=== PATIENT | female | born 1965 | race Caucasian/White ===

== ENCOUNTER 2017-01-16 11:03 | Emergency (ER) | payer OTHER ==
[~2017-01-16] VITALS: Ht 165.1 cm; Wt 68.0 kg
[~2017-01-16 11:03] MED LIST: AMOX1TAB61 PO; DICY10CA53 PO; HYDR-971 PO; HYDR12.53 PO; MULT-650 PO; OMEP20CA9 PO; PARO10TA57 PO
[2017-01-16] MEDS ORDERED: IV NORMAL SALINE 1,000ML 1,000 ML IV SCH (11:33)
[2017-01-16 11:43] LABS: BASO # 0.1 x10^3/uL (0.0-0.2); BASO % 1 % (0-3); EOS # 0.1 x10^3/uL (0.0-0.7); EOS % 1 % (0-3); HEMATOCRIT 49.2 % (36.0-47.0); HEMOGLOBIN 16.5 g/dL (12.0-15.5); LYMPH # 4.7 x10^3/uL (1.0-4.8); LYMPH % 43 % (24-48); MEAN CORPUSCULAR HEMOGLOBIN 30 pg (25-35); MEAN CORPUSCULAR HGB CONC 34 g/dL (31-37); MEAN CORPUSCULAR VOLUME 89 fL (79-100); MONO # 0.7 x10^3/uL (0.0-1.1); MONO % 6 % (0-9); NEUT # 5.3 x10^3uL (1.8-7.7); NEUT % 49 % (31-73); PLATELET COUNT 312 x10^3/uL (140-400); RED BLOOD COUNT 5.52 x10^6/uL (3.50-5.40); RED CELL DISTRIBUTION WIDTH 13.2 % (11.5-14.5); WHITE BLOOD COUNT 10.9 x10^3/uL (4.0-11.0)
[2017-01-16] MEDS ORDERED: fentaNYL PF 100 MCG/2 ML VIAL IV PRN (11:45)
[2017-01-16 11:54] LABS: ALBUMIN 4.2 g/dL (3.4-5.0); ALBUMIN/GLOBULIN RATIO 1.2 (1.0-1.7); CALCIUM 9.2 mg/dL (8.5-10.1); POTASSIUM 3.5 mmol/L (3.5-5.1); TOTAL BILIRUBIN 0.6 mg/dL (0.2-1.0); TOTAL PROTEIN 7.7 g/dL (6.4-8.2)
[2017-01-16] MEDS ORDERED: fentaNYL PF 100 MCG/2 ML VIAL IV ONE (12:00)
[2017-01-16] MEDS ORDERED: ONDANSETRON PF 4 MG/2 ML VIAL. IV ONE (12:00)
[2017-01-16 12:12] VITALS: BP 156/94
--- NOTE | 2017-01-16 12:14 | RAD ---
CT of the abdomen and pelvis without contrast, 01/16/2017: History: Bilateral flank pain Noncontrast scans were obtained utilizing the renal stone protocol. Comparison is made to a study from 07/20/2015. There are couple small intrarenal radiopacities on the left. The left renal collecting system and ureter are not dilated. Several small vascular calcifications are present in the pelvis. There is mild dilatation of the right renal pelvis and right ureter. There is a 3 mm radiopacity along the posterior wall of the urinary bladder on the right. This most likely represents a calculus lodged in the intramural segment of the distal right ureter at the ureterovesical junction. The bladder is largely collapsed. The gallbladder is surgically absent. The unopacified liver shows no abnormality. No pancreatic abnormality is seen. The spleen is of normal size. There is moderate aortoiliac calcific plaquing without evidence of aneurysm. No abdominal or pelvic adenopathy is seen. The bowel loops are not dilated. A couple small scattered colonic diverticula are noted. The appendix is visualized and shows no abnormality. No free air or significant free fluid is evident in the abdomen or pelvis. IMPRESSION: 1. Small obstructing calculus in the intramural segment of the distal right ureter at the ureterovesical junction. 2. Tiny nonobstructing left intrarenal calculi. PQRS Compliance Statement: One or more of the following individualized dose reduction techniques were utilized for this examination: 1. Automated exposure control 2. Adjustment of the mA and/or kV according to patient size 3. Use of iterative reconstruction technique
[2017-01-16 12:52] LABS: BILIRUBIN,URINE NEG (NEG); CLARITY,URINE CLEAR; COLOR,URINE YELLOW; GLUCOSE,URINE NEG (NEG); NITRITE,URINE NEG (NEG); UROBILINOGEN,URINE 0.2 mg/dL (0.2 mg/dL)
[2017-01-16] MEDS ORDERED: TAMSULOSIN 0.4 MG CAP.ER.24H. PO ONE (13:00)
[2017-01-16] MEDS ORDERED: KETOROLAC 30 MG/ML VIAL. IV ONE (13:00)
[2017-01-16] MEDS ORDERED: HYDR-971 PO (13:03)
[2017-01-16] MEDS ORDERED: TAMS0.4C97 PO (13:03)
--- NOTE | 2017-01-16 13:05 | PHYS DOC ---
Past History Past Medical History: Hypertension Past Surgical History: Cholecystectomy, Hysterectomy Alcohol Use: None Drug Use: None Adult General Chief Complaint Chief Complaint: FLANK PAIN HPI HPI Patient is a 51-year-old female who presents to the ED with severe right flank pain which began this morning. When she thinks about it, she has had some urinary urgency and dysuria for a few days. She's had no fever or chills. Nausea but no vomiting. She's never had anything like this before. Her pain is currently described as severe. It is in her right flank and radiates around to her right lower abdomen. Patient has had a hysterectomy. Review of Systems Review of Systems Constitutional: Denies fever or chills [] GI: As in history of present illness : She has had some recent urinary urgency, urinary incontinence, and dysuria r Current Medications Current Medications Current Medications Medications (Trade) Dose Ordered Sig/Mike Start Time Stop Time Status Last Admin Dose Admin Fentanyl Citrate (Fentanyl 2ml Vial) 100 mcg 1X ONCE 01/16/17 12:00 01/16/17 12:01 DC 01/16/17 11:43 100 MCG Ketorolac Tromethamine (Toradol) 30 mg 1X ONCE 01/16/17 13:00 01/16/17 13:01 Ondansetron HCl (Zofran) 4 mg 1X ONCE 01/16/17 12:00 01/16/17 12:01 DC 01/16/17 11:46 4 MG Sodium Chloride 1,000 ml @ 100 mls/hr Q10H 01/16/17 11:33 01/16/17 21:32 01/16/17 11:42 100 MLS/HR Tamsulosin HCl (Flomax) 0.4 mg 1X ONCE 01/16/17 13:00 01/16/17 13:01 Allergies Allergies Allergies Coded Allergies Type Severity Reaction Last Updated Verified codeine Allergy Unknown 07/10/16 Yes Physical Exam Physical Exam Constitutional: Well developed, well nourished, tearful, appears very uncomfortable, alert, mentating normally HENT: Normocephalic, atraumatic, bilateral external ears normal, nose normal. [] Eyes: conjunctiva normal, no discharge. [] Neck: Normal range of motion, no stridor. [] Cardiovascular:Heart rate regular rhythm, no murmur [] Lungs & Thorax: Bilateral breath sounds clear to auscultation [] Abdomen: Bowel sounds normal, soft, nondistended, no tenderness, no masses, no pulsatile masses. [] Skin: Warm, dry, no erythema, no rash. [] Extremities: No tenderness, no cyanosis, no clubbing, ROM intact, no edema. [] Neurologic: Alert and oriented X 3, normal motor function, normal sensory function, no focal deficits noted. [] Current Patient Data Vital Signs Vital Signs Date Time Temp Pulse Resp B/P (MAP) Pulse Ox O2 Delivery O2 Flow Rate FiO2 01/16/17 12:16 20 01/16/17 12:12 69 156/94 (114) 100 01/16/17 11:59 Room Air 01/16/17 11:13 98.4 Lab Results Laboratory Tests Test 01/16/17 11:25 White Blood Count 10.9 x10^3/uL (4.0-11.0) Red Blood Count 5.52 x10^6/uL (3.50-5.40) H Hemoglobin 16.5 g/dL (12.0-15.5) H Hematocrit 49.2 % (36.0-47.0) H Mean Corpuscular Volume 89 fL (79-100) Mean Corpuscular Hemoglobin 30 pg (25-35) Mean Corpuscular Hemoglobin Concent 34 g/dL (31-37) Red Cell Distribution Width 13.2 % (11.5-14.5) Platelet Count 312 x10^3/uL (140-400) Neutrophils (%) (Auto) 49 % (31-73) Lymphocytes (%) (Auto) 43 % (24-48) Monocytes (%) (Auto) 6 % (0-9) Eosinophils (%) (Auto) 1 % (0-3) Basophils (%) (Auto) 1 % (0-3) Neutrophils # (Auto) 5.3 x10^3uL (1.8-7.7) Lymphocytes # (Auto) 4.7 x10^3/uL (1.0-4.8) Monocytes # (Auto) 0.7 x10^3/uL (0.0-1.1) Eosinophils # (Auto) 0.1 x10^3/uL (0.0-0.7) Basophils # (Auto) 0.1 x10^3/uL (0.0-0.2) Sodium Level 142 mmol/L (136-145) Potassium Level 3.5 mmol/L (3.5-5.1) Chloride Level 106 mmol/L (98-107) Carbon Dioxide Level 29 mmol/L (21-32) Anion Gap 7 (6-14) Blood Urea Nitrogen 12 mg/dL (7-20) Creatinine 1.0 mg/dL (0.6-1.0) Estimated GFR (Cockcroft-Gault) 58.0 BUN/Creatinine Ratio 12 (6-20) Glucose Level 113 mg/dL (70-99) H Calcium Level 9.2 mg/dL (8.5-10.1) Total Bilirubin 0.6 mg/dL (0.2-1.0) Aspartate Amino Transferase (AST) 14 U/L (15-37) L Alanine Aminotransferase (ALT) 17 U/L (14-59) Alkaline Phosphatase 127 U/L (46-116) H Total Protein 7.7 g/dL (6.4-8.2) Albumin 4.2 g/dL (3.4-5.0) Albumin/Globulin Ratio 1.2 (1.0-1.7) EKG EKG [] Radiology/Procedures Radiology/Procedures CT scan of the abdomen and pelvis read by the radiologist. Mild dilatation of the right renal pelvis and right ureter, 3 mm radio opacity likely in the distal right ureter. [] Course & Med Decision Making Course & Med Decision Making Pertinent Labs and Imaging studies reviewed. (See chart for details) 51-year-old female presents with acute onset of right flank and right abdominal pain, history and exam are suggestive of a kidney stone. CT scan is consistent with a distal ureter stone on the right, with mild [place]. Patient got good relief with IV pain medication in the ED. She was given a dose of Flomax and Toradol prior to discharge. We discussed home management, she will strain her urine, follow up with urologist. See instructions for plan. [] Dragon Disclaimer Dragon Disclaimer This chart was dictated in whole or in part using Voice Recognition software in a busy, high-work load, and often noisy Emergency Department environment. It may contain unintended and wholly unrecognized errors or omissions. Departure Departure: Impression: Primary Impression: Kidney stone on right side Additional Impression: Renal colic on right side Disposition: 01 HOME, SELF-CARE Condition: IMPROVED Referrals: BANDAR TINOCO DO (PCP) Patient Instructions: Kidney Stones, [id number] Additional Instructions: Drink lots of fluids, you want to urinate every hour or so with light yellow urine the color of lemonade. Flomax one every 24 hours to help relax the urinary system to help with pain and help the stone pass. Ibuprofen 600 mg every 6-8 hours which also helps with pain and relaxes. If needed for more severe pain, hydrocodone as prescribed. Do not take this while driving. You may combine all 3 of these medications if needed. Call for an appointment with a urologist for follow-up in 1-2 weeks. Strain urine and save the stone, take it to the urologist. If you do not pass the stone in one to 2 weeks, you may need to have a procedure to get it out. That's why I want you to have an appointment with a urologist ready to go. Scripts Hydrocodone Bit/Acetaminophen (NORCO 5-325 TABLET) 1 Each Tablet 1 TAB PO PRN Q6HRS Y for PAIN, #10 TAB 0 Refills Prov: BREANA ESPINOZA MD 01/16/17 Tamsulosin Hcl (FLOMAX) 0.4 Mg Cap.er.24h 1 CAP PO DAILY for kidney stone pain, #14 CAP 0 Refills One every 24 hours until kidney stone passes Prov: BREANA ESPINOZA MD 01/16/17 Problem Qualifiers BREANA ESPINOZA MD Jan 16, 2017 13:05
== END 2017-01-16 13:19 | disposition home or self-care (01) ==
LOC: ER 11:03
DX: N23 Unspecified renal colic (principal); I10 Essential (primary) hypertension; Z90.49 Acquired absence of other specified parts of digestive tract; Z90.710 Acquired absence of both cervix and uterus; Z88.5 Allergy status to narcotic agent
CPT/HCPCS: 36415; 74176; 80053; 81003; 85025; 96361; 96374; 96375; 96376; 99285; J1885; J2405; J3010; J7030

== ENCOUNTER → 2017-01-26 | Outpatient (CLI) | payer OTHER ==
[2017-01-16 12:12] VITALS: BP 156/94
[~2017-01-26] MED LIST changes: +IOHEXOL 240 MG/ML 50ML VIAL. ONE; +IOHEXOL 300 MG/ML 75 ML VIAL. IV ONE; +TAMS0.4C97 PO
--- NOTE | 2017-01-26 11:43 | RAD ---
CT scan of the abdomen and pelvis without and with contrast 01/26/2017 Clinical history: Left lower quadrant abdominal pain. Technique: After the oral and intravenous administration of contrast, contiguous, 5 mm axial sections were obtained through the abdomen and pelvis. One or more of the following individualized dose reduction techniques were utilized for this study: 1. Automated exposure control. 2. Adjustment of the mA and/or kV according to patient size. 3. Use of iterative reconstruction technique. Findings: Comparison study is dated 01/16/2017. Images through the lung bases demonstrate minimal dependent subsegmental atelectasis bilaterally. The liver, spleen, pancreas, adrenal glands and kidneys are within normal limits. The small distal right ureteral calculus seen on the previous examination has been passed. There is no evidence of obstruction of either collecting system. Moderate atherosclerotic calcification of the abdominal aorta is seen. The abdominal aorta tapers normally. Surgical clips are seen within the gallbladder fossa consistent with a cholecystectomy. No free fluid or free air is seen within the abdomen. There is no evidence of bowel obstruction. The appendix is well-visualized and is within normal limits. Images through the pelvis demonstrate the urinary bladder distended with urine. A moderate amount of stool is seen involving the rectum and sigmoid colon. The patient is status post hysterectomy. No adnexal mass is seen. The osseous structures are unchanged. Impression: No acute abnormality is seen.
== END | disposition home or self-care (01) ==
LOC: CT 09:56
PROVIDERS: ATTEND Family Medicine
DX: N20.0 Calculus of kidney (principal); J98.11 Atelectasis; I70.0 Atherosclerosis of aorta; N32.89 Other specified disorders of bladder; I10 Essential (primary) hypertension; F17.200 Nicotine dependence, unspecified, uncomplicated; Z90.49 Acquired absence of other specified parts of digestive tract; Z90.710 Acquired absence of both cervix and uterus
CPT/HCPCS: 74177; Q9966; Q9967

== ENCOUNTER → 2018-02-09 | Outpatient (CLI) | payer OTHER ==
[~2018-02-09] MED LIST changes: -IOHEXOL 240 MG/ML 50ML VIAL. ONE; -IOHEXOL 300 MG/ML 75 ML VIAL. IV ONE
--- NOTE | 2018-02-09 13:23 | RAD ---
EXAM: Maxillofacial bone CT without contrast. HISTORY: Sinusitis. TECHNIQUE: Computed tomographic images of the maximal facial bones were obtained without contrast. *One or more of the following individualized dose reduction techniques were utilized for this examination: 1. Automated exposure control. 2. Adjustment of the mA and/or kV according to patient size. 3. Use of iterative reconstruction technique. COMPARISON: None. FINDINGS: There is severe mucosal thickening with near complete opacification of the bilateral maxillary sinuses, right aspect of the sphenoid sinus and right frontal and ethmoid sinuses. There is mild left ethmoid mucosal thickening. There is obstruction of the ostiomeatal units. There is rightward nasal septal deviation. There is no sinus wall thickening. The orbits heart are unremarkable. There is minimal mastoid fluid. The temporomandibular joints are intact. The visualized portions of the brain and calvarium are unremarkable. IMPRESSION: Severe paranasal sinus disease with obstruction of the ostiomeatal units, described above. Electronically signed by: Xena Lynch MD (02/09/2018 1:20 PM) [place] [id number]
== END | disposition home or self-care (01) ==
LOC: CT 09:54
PROVIDERS: ATTEND Family Medicine
DX: J01.40 Acute pansinusitis, unspecified (principal); J34.2 Deviated nasal septum; I10 Essential (primary) hypertension; Z90.49 Acquired absence of other specified parts of digestive tract; Z90.710 Acquired absence of both cervix and uterus; Z87.891 Personal history of nicotine dependence; Z88.5 Allergy status to narcotic agent; Z88.6 Allergy status to analgesic agent
CPT/HCPCS: 70486

== ENCOUNTER 2018-02-10 10:52 | Emergency (ER) | payer OTHER ==
[~2018-02-10] VITALS: Ht 167.6 cm; Wt 75.8 kg
--- NOTE | 2018-02-10 11:02 | EKG ---
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
[2018-02-10] MEDS ORDERED: IV NORMAL SALINE 1,000ML 1,000 ML IV SCH (11:04)
[2018-02-10 11:15] LABS: BASO # 0.2 x10^3/uL (0.0-0.2); BASO % 1 % (0-3); EOS # 0.2 x10^3/uL (0.0-0.7); EOS % 1 % (0-3); HEMATOCRIT 46.8 % (36.0-47.0); HEMOGLOBIN 15.9 g/dL (12.0-15.5); LYMPH # 4.4 x10^3/uL (1.0-4.8); LYMPH % 34 % (24-48); MEAN CORPUSCULAR HEMOGLOBIN 30 pg (25-35); MEAN CORPUSCULAR HGB CONC 34 g/dL (31-37); MEAN CORPUSCULAR VOLUME 89 fL (79-100); MONO % 8 % (0-9); NEUT # 7.4 x10^3uL (1.8-7.7); NEUT % 56 % (31-73); PLATELET COUNT 383 x10^3/uL (140-400); RED BLOOD COUNT 5.28 x10^6/uL (3.50-5.40); RED CELL DISTRIBUTION WIDTH 14.2 % (11.5-14.5); WHITE BLOOD COUNT 13.1 x10^3/uL (4.0-11.0)
[2018-02-10] MEDS ORDERED: LIDO:MAALOX 1:1 20 ML SINGLE DOSE. PO ONE (11:15)
[2018-02-10] MEDS ORDERED: ASPIRIN 81 MG TAB.CHEW PO ONE (11:15)
--- NOTE | 2018-02-10 11:39 | PHYS DOC ---
Past History Past Medical History: Hypertension Past Surgical History: Cholecystectomy, Hysterectomy Alcohol Use: None Drug Use: None Adult General Chief Complaint Chief Complaint: CHEST PAIN HPI HPI 52-year-old female presents to the emergency room at the advice for PCP with chest pain since last night. The patient states that the pain started as a central chest pressure. The patient took an omeprazole and was able to sleep. When she woke up this morning, the pain was still there and has intensified. At its worse it was 10 out of 10. At this time it is 6 out of 10. It is still a central pressure/squeezing sensation. Patient denies diaphoresis or shortness of breath. She has not taken an aspirin. She has no cardiac history. The patient has esophageal issues and needs to have a dilation. She has not scheduled this yet. Patient normally takes omeprazole daily, but has not taken it for the last 2 weeks until the dose last night. She denies fever or chills. Review of Systems Review of Systems Constitutional: Denies fever or chills [] Eyes: Denies change in visual acuity, redness, or eye pain [] HENT: Denies nasal congestion or sore throat [] Respiratory: Denies cough or shortness of breath [] Cardiovascular: No additional information not addressed in HPI [] GI: Denies abdominal pain, nausea, vomiting, bloody stools or diarrhea [] : Denies dysuria or hematuria [] Musculoskeletal: Denies back pain or joint pain [] Integument: Denies rash or skin lesions [] Neurologic: Denies headache, focal weakness or sensory changes [] Endocrine: Denies polyuria or polydipsia [] All other systems were reviewed and found to be within normal limits, except as documented in this note. Current Medications Current Medications Current Medications Medications (Trade) Dose Ordered Sig/Mike Start Time Stop Time Status Last Admin Dose Admin Aspirin (Children'S Aspirin) 324 mg 1X ONCE 02/10/18 11:15 02/10/18 11:18 DC 02/10/18 11:10 324 MG Multi-Ingredient Mouthwash/Gargle (Gi Cocktail) 20 ml 1X ONCE 02/10/18 11:15 02/10/18 11:18 DC 02/10/18 11:10 20 ML Sodium Chloride 1,000 ml @ 1,000 mls/hr Q1H 02/10/18 11:04 02/10/18 12:03 02/10/18 11:11 1,000 MLS/HR Allergies Allergies Allergies Coded Allergies Type Severity Reaction Last Updated Verified codeine Allergy Unknown 07/10/16 Yes Physical Exam Physical Exam Constitutional: Well developed, well nourished, no acute distress, non-toxic appearance. [] HENT: Normocephalic, atraumatic, bilateral external ears normal, oropharynx moist, no oral exudates, nose normal. [] Eyes: PERRLA, EOMI, conjunctiva normal, no discharge. [] Neck: Normal range of motion, no tenderness, supple, no stridor. [] Cardiovascular:Heart rate regular rhythm, no murmur [] Lungs & Thorax: Bilateral breath sounds clear to auscultation [] Abdomen: Bowel sounds normal, soft, no tenderness, no masses, no pulsatile masses. [] Skin: Warm, dry, no erythema, no rash. [] Back: No tenderness, no CVA tenderness. [] Extremities: No tenderness, no cyanosis, no clubbing, ROM intact, no edema. [] Neurologic: Alert and oriented X 3, normal motor function, normal sensory function, no focal deficits noted. [] Psychologic: Affect normal, judgement normal, mood normal. [] Current Patient Data Lab Results Laboratory Tests Test 02/10/18 11:00 White Blood Count 13.1 x10^3/uL (4.0-11.0) H Red Blood Count 5.28 x10^6/uL (3.50-5.40) Hemoglobin 15.9 g/dL (12.0-15.5) H Hematocrit 46.8 % (36.0-47.0) Mean Corpuscular Volume 89 fL (79-100) Mean Corpuscular Hemoglobin 30 pg (25-35) Mean Corpuscular Hemoglobin Concent 34 g/dL (31-37) Red Cell Distribution Width 14.2 % (11.5-14.5) Platelet Count 383 x10^3/uL (140-400) Neutrophils (%) (Auto) 56 % (31-73) Lymphocytes (%) (Auto) 34 % (24-48) Monocytes (%) (Auto) 8 % (0-9) Eosinophils (%) (Auto) 1 % (0-3) Basophils (%) (Auto) 1 % (0-3) Neutrophils # (Auto) 7.4 x10^3uL (1.8-7.7) Lymphocytes # (Auto) 4.4 x10^3/uL (1.0-4.8) Monocytes # (Auto) 1.0 x10^3/uL (0.0-1.1) Eosinophils # (Auto) 0.2 x10^3/uL (0.0-0.7) Basophils # (Auto) 0.2 x10^3/uL (0.0-0.2) Troponin I Quantitative < 0.017 ng/mL (0-0.055) EKG EKG My interpretation: Sinus rhythm, rate 84, normal axis, no ST elevations or depressions.[] Radiology/Procedures Radiology/Procedures [] Impressions: EXAM: Chest, 2 views. HISTORY: Chest pain. COMPARISON: None. FINDINGS: 2 views the chest are obtained. There is no infiltrate, pleural effusion or pneumothorax. The heart is normal in size. IMPRESSION: No acute pulmonary finding. Electronically signed by: Xena Lynch MD (02/10/2018 11:46 AM) [facility] DICTATED AND SIGNED BY: XENA LYNCH MD DATE: 02/10/18 1146 CC: MIGUELITO NAVARRETE DO; BANDAR TINOCO DO ~ Course & Med Decision Making Course & Med Decision Making Pertinent Labs and Imaging studies reviewed. (See chart for details) On arrival, an EKG was performed and 324 of aspirin was given. Patient's chest x-ray is unremarkable. Her EKG is unremarkable. Her labs are remarkable for a potassium 2.8. Her troponin is negative. I will treat her with 40 mEq of potassium by mouth as well as 40 mEq by IV. Patient was given a GI cocktail which did not seem to improve her pain. After being in the ED for a couple of hours, the patient stated that her pain had improved significantly. All of her cardiac workup was negative. She was reassured by these results. She is stable for discharge at this time. [] Dragon Disclaimer Dragon Disclaimer This electronic medical record was generated, in whole or in part, using a voice recognition dictation system. Departure Departure: Referrals: BANDAR TINOCO DO (PCP) MIGUELITO NAVARRETE DO Feb 10, 2018 11:39
[2018-02-10 11:40] LABS: ALBUMIN 3.5 g/dL (3.4-5.0); CALCIUM 8.9 mg/dL (8.5-10.1); GFR 57.8; TOTAL BILIRUBIN 0.7 mg/dL (0.2-1.0); TOTAL PROTEIN 6.9 g/dL (6.4-8.2)
[2018-02-10 11:43] LABS: POTASSIUM 2.8 mmol/L (3.5-5.1)
--- NOTE | 2018-02-10 11:50 | RAD ---
EXAM: Chest, 2 views. HISTORY: Chest pain. COMPARISON: None. FINDINGS: 2 views the chest are obtained. There is no infiltrate, pleural effusion or pneumothorax. The heart is normal in size. IMPRESSION: No acute pulmonary finding. Electronically signed by: Xena Lynch MD (02/10/2018 11:46 AM) [facility]
[2018-02-10] MEDS ORDERED: POTASSIUM CL 40MEQ IN 0.9%NACL 1,000 ML IV ONE (12:00)
[2018-02-10] MEDS ORDERED: POTASSIUM CHLORIDE 20 MEQ TABLET.ER. PO ONE (12:00)
[2018-02-10 14:32] VITALS: BP 133/80
== END 2018-02-10 14:37 | disposition home or self-care (01) ==
LOC: ER 10:52
DX: R07.89 Other chest pain (principal); I10 Essential (primary) hypertension; Z88.5 Allergy status to narcotic agent
CPT/HCPCS: 36415; 71046; 80053; 84484; 85025; 93005; 96365; 96366; 99285-25; J7030

== ENCOUNTER 2018-04-01 10:48 | Emergency (ER) | payer SELFPAY ==
[~2018-04-01] VITALS: Ht 167.6 cm; Wt 75.8 kg
[2018-04-01 11:06] VITALS: BP 142/93
--- NOTE | 2018-04-01 11:32 | RAD ---
Right foot 3 views, right ankle 3 views. HISTORY: Fell, pain Right foot 3 views were taken of the right foot. There is not evidence of an acute fracture or osseous abnormality. Right ankle 3 views were taken of the right ankle. There is not evidence of an acute fracture or osseous abnormality. IMPRESSION: 1. No fracture noted in the right foot. 2. No fracture noted in the right ankle. Electronically signed by: Darci Ann MD (04/01/2018 11:28 AM) [facility]
--- NOTE | 2018-04-01 15:18 | ED.ADGEN ---
Past History Past Medical History: GERD, Hypertension Past Surgical History: Cholecystectomy, Hysterectomy Alcohol Use: None Drug Use: None Adult General Chief Complaint Chief Complaint Ankle pain, tenderness and swelling HPI HPI Patient is a 52-year-old female presents with right ankle pain, tenderness and swelling after twisting ankle last evening. Patient's continued weight-bear reports pain over the medial aspect of her right ankle, foot and also right knee pain. No other acute symptoms or complaints.[] Review of Systems Review of Systems Review symptoms as per history of present illness. All other review symptoms are negative. All other systems were reviewed and found to be within normal limits, except as documented in this note. Allergies Allergies Allergies Coded Allergies Type Severity Reaction Last Updated Verified codeine Allergy Unknown 07/10/16 Yes Physical Exam Physical Exam Constitutional: Well developed, well nourished, no acute distress, non-toxic appearance. [] HENT: Normocephalic, atraumatic, bilateral external ears normal, oropharynx moist, no oral exudates, nose normal. [] Eyes: PERRLA, EOMI, conjunctiva normal, no discharge. [] Neck: Normal range of motion, no tenderness, supple, no stridor. [] Extremities: R extremity, Ankle, tenderness swelling of right malleolus and midfoot. Right knee, no tenderness swelling bruising.,. [] Neurologic: Alert and oriented X 3, normal motor function, normal sensory function, no focal deficits noted. [] Psychologic: Affect normal, judgement normal, mood normal. [] Current Patient Data Vital Signs Vital Signs Date Time Temp Pulse Resp B/P (MAP) Pulse Ox O2 Delivery O2 Flow Rate FiO2 04/01/18 11:06 98.8 88 20 99 04/01/18 11:06 Room Air EKG EKG [] Radiology/Procedures Radiology/Procedures [Right foot/right ankle x-ray: No obvious displaced fractures.] Course & Med Decision Making Course & Med Decision Making Pertinent Labs and Imaging studies reviewed. (See chart for details) [No acute findings on x-ray. Recommend supportive care with PCP follow-up.] Final Impression Final Impression [Right ankle injury Right foot injury] Dragon Disclaimer Dragon Disclaimer This electronic medical record was generated, in whole or in part, using a voice recognition dictation system. MIGUELITO DUKES DO Apr 01, 2018 15:18
== END 2018-04-01 11:50 | disposition home or self-care (01) ==
LOC: ER 10:48
DX: S99.921A Unspecified injury of right foot, initial encounter (principal); S99.911A Unspecified injury of right ankle, initial encounter; K21.9 Gastro-esophageal reflux disease without esophagitis; I10 Essential (primary) hypertension; Z88.5 Allergy status to narcotic agent; X50.1XXA Overexertion from prolonged static or awkward postures, initial encounter; Y93.89 Activity, other specified; Y92.89 Other specified places as the place of occurrence of the external cause; Y99.8 Other external cause status
CPT/HCPCS: 73610; 73630; 99284

== ENCOUNTER 2019-11-22 21:21 | Emergency (ER) | payer SELFPAY ==
[~2019-11-22] VITALS: Ht 167.6 cm; Wt 71.0 kg
[~2019-11-22 21:21] MED LIST changes: +HYDR-3165 PO; -HYDR-971 PO; -HYDR12.53 PO; +HYDR12.572 PO; +OMEP20CA16 PO; -OMEP20CA9 PO
--- NOTE | 2019-11-22 21:56 | PHYS DOC ---
Past History Past Medical History: GERD, Hypertension Past Surgical History: Cholecystectomy, Hysterectomy Alcohol Use: None Drug Use: None General Adult EDM: Chief Complaint: Right flank pain HPI: HPI: 54-year-old female presents with right flank and lower pelvic pain. The pain started as a mild sensation last night. Throughout the day today, she has had intermittent deep pain. It has been increasing this evening. The patient states that the pain feels very similar to when she had a previous kidney stone. She does not want the pain to get that out of control this time. She denies dysuria, urinary frequency, fever, chills. She has no other complaints at this time. Review of Systems: Review of Systems: Constitutional: Denies fever or chills Eyes: Denies change in visual acuity HENT: Denies nasal congestion or sore throat Respiratory: Denies cough or shortness of breath Cardiovascular: Denies chest pain or edema GI: Denies abdominal pain, nausea, vomiting, bloody stools or diarrhea : Denies dysuria Musculoskeletal: Denies back pain or joint pain Integument: Denies rash Neurologic: Denies headache, focal weakness or sensory changes Endocrine: Denies polyuria or polydipsia Lymphatic: Denies swollen glands Psychiatric: Denies depression or anxiety Heart Score: Risk Factors: Risk Factors: DM, Current or recent (<one month) smoker, HTN, HLP, family history of CAD, obesity. Risk Scores: Score 0 - 3: 2.5% MACE over next 6 weeks - Discharge Home Score 4 - 6: 20.3% MACE over next 6 weeks - Admit for Clinical Observation Score 7 - 10: 72.7% MACE over next 6 weeks - Early Invasive Strategies Allergies: Allergies: Allergies Coded Allergies Type Severity Reaction Last Updated Verified codeine Allergy Unknown 07/10/16 Yes Physical Exam: PE: Constitutional: Well developed, well nourished, no acute distress, non-toxic appearance. [] HENT: Normocephalic, atraumatic, bilateral external ears normal, oropharynx moist, no oral exudates, nose normal. [] Eyes: PERRLA, EOMI, conjunctiva normal, no discharge. [] Neck: Normal range of motion, no tenderness, supple, no stridor. [] Cardiovascular:Heart rate regular rhythm, no murmur [] Lungs & Thorax: Bilateral breath sounds clear to auscultation [] Abdomen: Bowel sounds normal, soft, no tenderness, no masses, no pulsatile masses. [] Skin: Warm, dry, no erythema, no rash. [] Back: No tenderness, mild right CVA tenderness. [] Extremities: No tenderness, no cyanosis, no clubbing, ROM intact, no edema. [] Neurologic: Alert and oriented X 3, normal motor function, normal sensory function, no focal deficits noted. [] Psychologic: Affect normal, judgement normal, mood normal. [] EKG: EKG: [] Radiology/Procedures: Radiology/Procedures: [] Impressions: EXAM: CT Abdomen and Pelvis without IV contrast CLINICAL HISTORY: Reason: flank pain, blood in urine, hx kidney stones / Spl. Instructions: / History: . COMPARISON: none TECHNIQUE: Helical CT of the abdomen and pelvis was performed without the administration of IV contrast. Axial, coronal and sagittal reformatted images were generated. ---PQRS compliance statement - One or more of the following individualized dose reduction techniques were utilized for this study: 1. Automated exposure control 2. Adjustment of the mA and/or kV according to patient size 3. Use of iterative reconstruction technique--- FINDINGS: Lack of intravenous contrast limits evaluation of solid organs, vasculature, and lymph nodes. Lower chest: Linear opacities in the lingula, middle lobe and lower lobe likely scarring/atelectasis. A 4 mm right lower lobe lung nodule (image 27) is seen. Abdomen and pelvis: Liver and biliary system: Focal low-attenuation along the right hepatic lobe too small to accurately characterize. Cholecystomy clips are seen. No biliary duct dilatation. Spleen: Unremarkable Pancreas: Unremarkable Adrenal glands: Unremarkable Kidneys: Nonobstructing left interpolar renal calculus. Nonobstructing left lower pole renal calculi. No hydronephrosis or hydroureter. Lymph nodes/retroperitoneum: No abdominal or pelvic lymphadenopathy. Vessels: Aortic calcifications are seen. Aorta is normal in caliber. Bowel/Peritoneal cavity: Moderate colonic stool content is seen. No small or large bowel dilatation. No bowel obstruction. Small fat-containing periumbilical hernia is seen. Appendix is normal. No abdominal or pelvic ascites. Abdominal wall: Trace fat-containing. Local hernia is seen. Bladder: Bladder is decompressed. Bones: No aggressive osseous lesion. Degenerative changes of the spine are noted IMPRESSION: 1. Nonobstructing left renal calculi. No ureteral or bladder calculi. No hydronephrosis or hydroureter. 2. Decompressed bladder is grossly unremarkable. 3. 4 mm right lower lobe lung nodule is seen. Per Fleischner Society guidelines for incidentally found solid nodules measuring less than 6 mm, no follow-up is necessary if patient is considered at low risk for lung cancer. If patient is considered to be at high risk, such as with history of smoking, then CT follow-up in about 12 months can be considered. 4. Focal low-attenuation along the right hepatic lobe too small to accurately characterize. Electronically signed by: Robb Pak MD (11/22/2019 10:21 PM) [facility] DICTATED AND SIGNED BY: ROBB PAK MD DATE: 11/22/192220 CC: MIGUELITO NAVARRETE DO; PCP,UNKNOWN ~ Course & Med Decision Making: Course & Med Decision Making Pertinent Labs and Imaging studies reviewed. (See chart for details) The patient's labs are unremarkable. Her urinalysis was significant for blood. There is no infection. Her CT scan does not show a ureteral or bladder stone. She does have nonobstructive left renal calculi. See official read for more details. There are also some incidental findings. It seems likely the patient passed a stone. She is stable for discharge at this time. [] Brook Disclaimer: Brook Disclaimer: This electronic medical record was generated, in whole or in part, using a voice recognition dictation system. Departure Departure: Impression: Primary Impression: Kidney stone Disposition: 01 HOME/RESIDENCE PRIOR TO ADM Condition: STABLE Referrals: PCP,UNKNOWN (PCP) Patient Instructions: Kidney Stones, [id number] Justification of Admission: Justification of Admission: Justification of Admission Dx: N/A MIGUELITO NAVARRETE DO Nov 22, 2019 21:56
[2019-11-22] MEDS ORDERED: IV NORMAL SALINE 1,000ML 1,000 ML IV ONE (22:00)
[2019-11-22 22:03] LABS: CLARITY,URINE CLEAR; COLOR,URINE YELLOW
[2019-11-22 22:04] LABS: BACTERIA,URINE FEW /HPF (0-FEW); BILIRUBIN,URINE NEG (NEG); GLUCOSE,URINE NEG (NEG); NITRITE,URINE NEG (NEG); SQUAMOUS EPITHELIAL CELL,UR FEW /LPF; UROBILINOGEN,URINE 0.2 mg/dL (0.2 mg/dL)
[2019-11-22] MEDS ORDERED: MORPHINE SULFATE 4 MG/ML DISP.SYRIN. IV ONE (22:15)
[2019-11-22] MEDS ORDERED: ONDANSETRON PF 4 MG/2 ML VIAL. IVP ONE (22:15)
--- NOTE | 2019-11-22 22:25 | RAD ---
EXAM: CT Abdomen and Pelvis without IV contrast CLINICAL HISTORY: Reason: flank pain, blood in urine, hx kidney stones / Spl. Instructions: / History: . COMPARISON: none TECHNIQUE: Helical CT of the abdomen and pelvis was performed without the administration of IV contrast. Axial, coronal and sagittal reformatted images were generated. ---PQRS compliance statement - One or more of the following individualized dose reduction techniques were utilized for this study: 1. Automated exposure control 2. Adjustment of the mA and/or kV according to patient size 3. Use of iterative reconstruction technique--- FINDINGS: Lack of intravenous contrast limits evaluation of solid organs, vasculature, and lymph nodes. Lower chest: Linear opacities in the lingula, middle lobe and lower lobe likely scarring/atelectasis. A 4 mm right lower lobe lung nodule (image 27) is seen. Abdomen and pelvis: Liver and biliary system: Focal low-attenuation along the right hepatic lobe too small to accurately characterize. Cholecystomy clips are seen. No biliary duct dilatation. Spleen: Unremarkable Pancreas: Unremarkable Adrenal glands: Unremarkable Kidneys: Nonobstructing left interpolar renal calculus. Nonobstructing left lower pole renal calculi. No hydronephrosis or hydroureter. Lymph nodes/retroperitoneum: No abdominal or pelvic lymphadenopathy. Vessels: Aortic calcifications are seen. Aorta is normal in caliber. Bowel/Peritoneal cavity: Moderate colonic stool content is seen. No small or large bowel dilatation. No bowel obstruction. Small fat-containing periumbilical hernia is seen. Appendix is normal. No abdominal or pelvic ascites. Abdominal wall: Trace fat-containing. Local hernia is seen. Bladder: Bladder is decompressed. Bones: No aggressive osseous lesion. Degenerative changes of the spine are noted IMPRESSION: 1. Nonobstructing left renal calculi. No ureteral or bladder calculi. No hydronephrosis or hydroureter. 2. Decompressed bladder is grossly unremarkable. 3. 4 mm right lower lobe lung nodule is seen. Per Fleischner Society guidelines for incidentally found solid nodules measuring less than 6 mm, no follow-up is necessary if patient is considered at low risk for lung cancer. If patient is considered to be at high risk, such as with history of smoking, then CT follow-up in about 12 months can be considered. 4. Focal low-attenuation along the right hepatic lobe too small to accurately characterize. Electronically signed by: Robb Pak MD (11/22/2019 10:21 PM) [facility]
[2019-11-22 22:34] LABS: BASO # 0.1 x10^3/uL (0.0-0.2); BASO % 1 % (0-3); EOS # 0.2 x10^3/uL (0.0-0.7); EOS % 2 % (0-3); HEMATOCRIT 41.9 % (36.0-47.0); HEMOGLOBIN 14.3 g/dL (12.0-15.5); LYMPH # 3.9 x10^3/uL (1.0-4.8); LYMPH % 43 % (24-48); MEAN CORPUSCULAR HEMOGLOBIN 31 pg (25-35); MEAN CORPUSCULAR HGB CONC 34 g/dL (31-37); MEAN CORPUSCULAR VOLUME 91 fL (79-100); MONO # 0.7 x10^3/uL (0.0-1.1); MONO % 8 % (0-9); NEUT # 4.4 x10^3uL (1.8-7.7); NEUT % 48 % (31-73); PLATELET COUNT 304 x10^3/uL (140-400); RED CELL DISTRIBUTION WIDTH 13.2 % (11.5-14.5); WHITE BLOOD COUNT 9.3 x10^3/uL (4.0-11.0)
[2019-11-22 22:43] LABS: CALCIUM 8.8 mg/dL (8.5-10.1); GFR 57.4
[2019-11-22 22:48] LABS: ALBUMIN 3.3 g/dL (3.4-5.0); TOTAL BILIRUBIN 0.3 mg/dL (0.2-1.0); TOTAL PROTEIN 6.7 g/dL (6.4-8.2)
[2019-11-22 23:15] VITALS: BP 152/82
[2019-11-22] MEDS ORDERED: POTASSIUM CHLORIDE 20 MEQ TABLET.ER. PO ONE (23:15)
== END 2019-11-22 23:20 | disposition home or self-care (01) ==
LOC: ER 21:21
DX: N13.2 Hydronephrosis with renal and ureteral calculous obstruction (principal); R10.2 Pelvic and perineal pain; R20.0 Anesthesia of skin; K21.9 Gastro-esophageal reflux disease without esophagitis; I10 Essential (primary) hypertension; Z90.710 Acquired absence of both cervix and uterus; Z90.49 Acquired absence of other specified parts of digestive tract; Z88.5 Allergy status to narcotic agent
CPT/HCPCS: 36415; 74176; 80053; 81001; 85025; 96374; 96375; 99284; J2270; J2405; J7030

== ENCOUNTER 2021-02-08 18:46 | Emergency (ER) | payer OTHER ==
[~2021-02-08] VITALS: Ht 165.1 cm; Wt 72.1 kg
[2021-02-08] MEDS ORDERED: IV NORMAL SALINE 1,000ML 1,000 ML IV ONE (19:15)
[2021-02-08] MEDS ORDERED: ONDANSETRON PF 4 MG/2 ML VIAL. IVP ONE (19:15)
--- NOTE | 2021-02-08 19:32 | PHYS DOC ---
Past History Past Medical History: Anxiety, Depression, Gallstones, GERD, High Cholesterol, Hypertension, Urolithias, Other Additional Past Medical Histor: sleep apnea, pneumothorax in rt lung and lt lung; restless leg syndrome Past Surgical History: Cholecystectomy, Hysterectomy, Other Additional Past Surgical Histo: esophageal dilatation for "collapsed esophagus" Alcohol Use: None Drug Use: None General Adult EDM: Chief Complaint: NAUSEA/VOMITING/DIARRHEA HPI: HPI: 55-year-old female presents with 1 day of nausea, vomiting, diarrhea. She woke up this morning with the symptoms. She has had them all day. She has not taken any medications. She does not believe she has had a fever. No one else in her household is sick. She does not believe that she has COVID-19, but she is not vaccinated. She would like to go ahead and get tested in addition to other treatment. Review of Systems: Review of Systems: Constitutional: Denies fever or chills Eyes: Denies change in visual acuity HENT: Denies nasal congestion or sore throat Respiratory: Denies cough or shortness of breath Cardiovascular: Denies chest pain or edema GI: Generalized abdominal pain after vomiting, nausea, vomiting, diarrhea. : Denies dysuria Musculoskeletal: Denies back pain or joint pain Integument: Denies rash Neurologic: Denies headache, focal weakness or sensory changes Endocrine: Denies polyuria or polydipsia Lymphatic: Denies swollen glands Psychiatric: Denies depression or anxiety Current Medications: Current Meds: Current Medications Medications (Trade) Dose Ordered Sig/[facility] Start Time Stop Time Status Last Admin Dose Admin Ondansetron HCl (Zofran) 4 mg 1X ONCE 02/08/21 19:15 02/08/21 19:16 UNV Sodium Chloride 1,000 ml @ 1,000 mls/hr 1X ONCE 02/08/21 19:15 02/08/21 20:14 UNV Allergies: Allergies: Allergies Coded Allergies Type Severity Reaction Last Updated Verified codeine Allergy Unknown 07/10/16 Yes Physical Exam: PE: Constitutional: Well developed, well nourished, no acute distress, non-toxic appearance. [] HENT: Normocephalic, atraumatic, bilateral external ears normal, oropharynx moist, no oral exudates, nose normal. [] Eyes: PERRLA, EOMI, conjunctiva normal, no discharge. [] Neck: Normal range of motion, no tenderness, supple, no stridor. [] Cardiovascular:Heart rate regular rhythm, no murmur [] Lungs & Thorax: Bilateral breath sounds clear to auscultation [] Abdomen: Bowel sounds normal, soft, no tenderness, no masses, no pulsatile masses. [] Skin: Warm, dry, no erythema, no rash. [] Back: No tenderness, no CVA tenderness. [] Extremities: No tenderness, no cyanosis, no clubbing, ROM intact, no edema. [] Neurologic: Alert and oriented X 3, normal motor function, normal sensory function, no focal deficits noted. [] Psychologic: Affect normal, judgement normal, mood normal. [] EKG: EKG: [] Radiology/Procedures: Radiology/Procedures: [] Heart Score: C/O Chest Pain: N/A Risk Factors: Risk Factors: DM, Current or recent (<one month) smoker, HTN, HLP, family history of CAD, obesity. Risk Scores: Score 0 - 3: 2.5% MACE over next 6 weeks - Discharge Home Score 4 - 6: 20.3% MACE over next 6 weeks - Admit for Clinical Observation Score 7 - 10: 72.7% MACE over next 6 weeks - Early Invasive Strategies Course & Med Decision Making: Course & Med Decision Making Pertinent Labs and Imaging studies reviewed. (See chart for details) The patient's labs are unremarkable. Her urinalysis is negative for infection. We have given her a liter normal saline and Zofran. She has had no further vomiting. Covid test is pending. I will discharge her with Zofran for home. She is stable for discharge at this time. [] Dragon Disclaimer: Dragon Disclaimer: This electronic medical record was generated, in whole or in part, using a voice recognition dictation system. Departure Departure: Impression: Primary Impression: Vomiting Additional Impression: Viral syndrome Disposition: HOME / SELF CARE / HOMELESS Condition: STABLE Referrals: DONAL LÓPEZ PAC (PCP) Patient Instructions: Nausea and Vomiting, [id number] Additional Instructions: You have been tested for or diagnosed with COVID-19. It is an infection caused by a new type of coronavirus. COVID-19 will cause cold-like or mild flu symptoms in most. It can cause more severe symptoms like problems breathing in some. There is no treatment for COVID-19. The body will clear the infection over time. Self-care will help to ease discomfort. Steps to Take: Self-Care Rest as needed. Healthy habits may help you feel better. Steps include: Choose healthy foods including fruits and vegetables. Drink water throughout the day. Get plenty of sleep each night. If you smoke, try to quit. It may ease breathing. Avoid alcohol. Keep Others Healthy The virus can spread to others. Droplets are released every time you sneeze or cough. The droplets can get into the mouth, nose, or eyes of people near you and lead to infection. To lower the chances of spreading COVID-19 to others: Stay at home until your doctor has said it is safe to leave. If you tested positive this will mean staying isolated until both of the following are true: At least 7 days have passed since the start of illness. You are free of fever for at least 72 hours without the use of medicine. During this time: - Avoid public areas, events, or transportation. Do not return to work or [employer] until your doctor has said it is safe to do so. - Call ahead if you need to go to a medical center. Let them know you may have COVID-19. It will help them guide you where to go. They may also ask you to wear a facemask when you come to the office. - If you call for emergency medical services, let them know you may have COVID- 19. While at home: - Try to avoid close contact with others. Stay about 6 feet away. - If possible, spend most of your time in a separate room from others. - Use a face mask if you will be in close contact with others such as sharing a room or vehicle. - Have someone wipe down common surfaces in the home. Use household clinic clerk every day on areas like doorknobs, counters, or sinks. - Cough or sneeze into a tissue. Throw the tissue away right after use. If a tissue is not available, cough or sneeze into your elbow. - Wash your hands often. Wash them after sneezing or coughing. Use soap and water and wash for at least 20 seconds. Alcohol based hand marble cleaner can be used if soap and water is not available. - Do not prepare food for others. Avoid sharing personal items like forks, spoons, or toothbrushes. - Avoid close contact with pets while you are sick. There is no evidence of the virus passing to pets. This is a safety step until more is known about this virus. Isolation can be frustrating. Social interaction can help. Keep in touch with friends and family through phone and tech options. You can still interact with others in your home, just keep a safe distance of about 6 feet. Follow-up: Your doctors office will check in with you to see if there are any changes in your health. You may be asked to keep track of symptoms to share with them. They will also let you know when you are clear to be in public again. Problems to Look Out For: Contact your doctor if your recovery is not going as you expect. Get emergency care if you have problems such as: - Trouble breathing - Nonstop chest pain or pressure - Changes in awareness, confusion, or problems waking - Lips or face have bluish color - Worsening of symptoms If you think you have an emergency, call for emergency medical services right away. As taken from [facility] Ondansetron (ONDANSETRON ODT) 4 Mg Tab.rapdis 1 TAB PO PRN Q6-8HRS PRN for VOMITING, #16 TAB Prov: MIGUELITO NAVARRETE DO 02/08/21 MIGUELITO NAVARRETE DO Feb 08, 2021 19:32
[2021-02-08 20:11] LABS: BASO # 0.1 x10^3/uL (0.0-0.2); BASO % 1 % (0-3); EOS # 0.1 x10^3/uL (0.0-0.7); EOS % 1 % (0-3); HEMOGLOBIN 11.6 g/dL (12.0-15.5); LYMPH # 3.7 x10^3/uL (1.0-4.8); LYMPH % 40 % (24-48); MEAN CORPUSCULAR HEMOGLOBIN 30 pg (25-35); MEAN CORPUSCULAR HGB CONC 33 g/dL (31-37); MEAN CORPUSCULAR VOLUME 89 fL (79-100); MONO # 0.7 x10^3/uL (0.0-1.1); MONO % 8 % (0-9); NEUT # 4.7 x10^3uL (1.8-7.7); NEUT % 51 % (31-73); PLATELET COUNT 350 x10^3/uL (140-400); RED BLOOD COUNT 3.94 x10^6/uL (3.50-5.40); RED CELL DISTRIBUTION WIDTH 14.5 % (11.5-14.5); WHITE BLOOD COUNT 9.3 x10^3/uL (4.0-11.0)
[2021-02-08 20:12] LABS: BACTERIA,URINE 0 /HPF (0-FEW); BILIRUBIN,URINE NEG (NEG); CLARITY,URINE CLEAR; COLOR,URINE YELLOW; GLUCOSE,URINE NEG (NEG); HYALINE CASTS, URINE FEW /HPF; NITRITE,URINE NEG (NEG); RBC,URINE 0 /HPF (0-2); SQUAMOUS EPITHELIAL CELL,UR FEW /LPF; UROBILINOGEN,URINE 0.2 mg/dL (0.2 mg/dL); WBC,URINE 0 /HPF (0-4)
[2021-02-08 20:15] LABS: CALCIUM 8.3 mg/dL (8.5-10.1); GFR 57.1; POTASSIUM 3.7 mmol/L (3.5-5.1)
[2021-02-08 20:21] LABS: ALBUMIN 3.4 g/dL (3.4-5.0); ALBUMIN/GLOBULIN RATIO 1.1 (1.0-1.7); TOTAL BILIRUBIN 0.4 mg/dL (0.2-1.0); TOTAL PROTEIN 6.4 g/dL (6.4-8.2)
[2021-02-08] MEDS ORDERED: ONDA4TAB12 PO (22:32)
[2021-02-08 22:55] VITALS: BP 146/80
--- NOTE | 2021-02-09 12:35 | NUR ---
IP: Attempted to contact pt concerning covid results. No answer, left a voicemail to return the call.
--- NOTE | 2021-02-11 10:25 | NUR ---
IP> Made multiple attempts to contact pt concerning covid results. Will mail results today.
== END 2021-02-08 22:58 | disposition home or self-care (01) ==
LOC: ER 18:46
DX: B34.9 Viral infection, unspecified (principal); F41.9 Anxiety disorder, unspecified; F32.9 Major depressive disorder, single episode, unspecified; K21.9 Gastro-esophageal reflux disease without esophagitis; E78.00 Pure hypercholesterolemia, unspecified; I10 Essential (primary) hypertension; Z20.822 Contact with and (suspected) exposure to COVID-19; Z90.49 Acquired absence of other specified parts of digestive tract; Z90.710 Acquired absence of both cervix and uterus; Z88.5 Allergy status to narcotic agent
CPT/HCPCS: 36415; 80053; 81001; 85025; 96361; 96374; 99283; C9803; J2405; J7030; U0003

== ENCOUNTER 2021-05-23 20:47 | Emergency (ER) | payer BC, OTHER ==
[~2021-05-23] VITALS: Ht 165.1 cm; Wt 76.2 kg
[~2021-05-23 20:47] MED LIST changes: +ONDA4TAB12 PO
--- NOTE | 2021-05-23 20:58 | PHYS DOC ---
Past History Past Medical History: Anxiety, Depression, Gallstones, GERD, High Cholesterol, Hypertension, Urolithias, Other Additional Past Medical Histor: sleep apnea, pneumothorax in rt lung and lt lung; restless leg syndrome, Past Surgical History: Cholecystectomy, Hysterectomy, Other Additional Past Surgical Histo: esophageal dilatation for "collapsed esophagus" Alcohol Use: Rarely Drug Use: None General Adult HPI: HPI: ".. I am having some abdomen pain..to night.. it cyndi started two days ago.. but much worse tonight..". " Lot of diarrhia and cramping.." Patient is a 55 year old female who presents with above hx and complaints abdomen pain. Patient states pain started approximately 2 days ago but has become much more severe tonight. Has associated with nausea. Patient denies any intake of bad food. No recent travel outside the [place] area. Does advise that everybody at one worksite is sick, patient works at [employer] but also holds down a another job at [employer].. The patient denies any trauma. Patient has had Moderna vaccination x2 but not had booster. Has not had flu vaccination this season. Patient has had history of anxiety, depression, gallstones, GERD, elevated cholesterol, hypertension, kidney stones, sleep apnea, kidney stones, restless leg syndrome, and bilateral pneumothoraxes, dysphagia. Patient has had previous abdomen surgeries of cholecystectomy and hysterectomy and esophageal dilations. Patient has not had a recent EGD or colonoscopy. The patient normally follows with Genevieve López for care. Review of Systems: Review of Systems: Constitutional: Subjective fever or chills Eyes: Denies change in visual acuity HENT: Denies nasal congestion or sore throat Respiratory: Denies cough or shortness of breath Cardiovascular: Denies chest pain or edema GI: Complains of abdominal pain, nausea, vomiting, and diarrhea : Denies dysuria Musculoskeletal: Denies back pain or joint pain Integument: Denies rash Neurologic: Denies headache, focal weakness or sensory changes Endocrine: Denies polyuria or polydipsia Lymphatic: Denies swollen glands Psychiatric: Denies depression or anxiety Family History: Family History: She has 1 daughter that has Crohn's and one daughter has ulcerative colitis Current Medications: Current Meds: See nursing for home meds Allergies: Allergies: Allergies Coded Allergies Type Severity Reaction Last Updated Verified codeine Allergy Unknown 07/10/16 Yes Physical Exam: PE: Constitutional: Moderate acute distress, non-toxic appearance. [] HENT: Normocephalic, atraumatic, bilateral external ears normal, oropharynx dry, no oral exudates, nose normal. [] Eyes: PERRLA, EOMI, conjunctiva normal, no discharge. [] Neck: Normal range of motion, no tenderness, supple, no stridor. [] Cardiovascular:Heart rate regular rhythm, no murmur [] Lungs & Thorax: Bilateral breath sounds clear to auscultation [] Abdomen: Bowel sounds normal, soft, no tenderness, no masses, no pulsatile masses. [] Skin: Warm, dry, no erythema, no rash. [] Back: No tenderness, no CVA tenderness. [] Extremities: No tenderness, no cyanosis, no clubbing, ROM intact, no edema. [] Neurologic: Alert and oriented X 3, normal motor function, normal sensory function, no focal deficits noted. [] Psychologic: Affect normal, judgement normal, mood normal. [] EKG: EKG: My interpretation EKG shows a sinus rhythm at 70 bpm. There is some anterior septal changes. But no findings of acute STEMI or contralateral changes. Time of EKG is 2213 hrs. [] Radiology/Procedures: Radiology/Procedures: [place] [address] IMAGING REPORT Signed PATIENT: KIMBERLY COLLADOOUNT: [id number] : 1965 LOCATION: ER AGE: 55 SEX: F EXAM STATUS: DEP ER ORD. PHYSICIAN: YARIEL BRUCE MD REASON: pain, nv,, cramp PROCEDURE: ACUTE ABDOMEN SERIES PA chest and AP upright and supine abdomen x-ray HISTORY: Abdominal pain, nausea, vomiting. FINDINGS: Heart size normal. Mediastinal silhouette is normal. Mild apical paraseptal emphysema. At the right lateral lung base there is a oblong 18 mm soft tissue density nodule not apparent on prior imaging. No pleural effusions. No pneumoperitoneum. Cholecystectomy surgical clips. Left renal calculi largest of which measures 4 mm. Left pelvic phleboliths. No dilated bowel loops or abnormal air-fluid levels in the bowel to suggest ileus or obstruction. IMPRESSION: 1. No evidence of bowel obstruction. 2. Left renal calculi. 3. 18 mm solid nodule at the right lateral lung base is new from prior x-rays. Further assessment with CT chest imaging is recommended. Electronically signed by: Soumya Salcedo MD (05/24/2021 7:26 AM) [facility] [place] DICTATED AND SIGNED BY: SOUMYA SALCEDO MD DATE: 05/24/21721 CC: YARIEL BRUCE MD; GENEVIEVE LÓPEZ PAC ~MTH0 0 [][place] [address] IMAGING REPORT Signed PATIENT: ERIC COLLADO: [id number] : 1965 LOCATION: ER AGE: 55 SEX: F EXAM STATUS: REG ER ORD. PHYSICIAN: YARIEL BRUCE MD REASON: abd. pain - hx. colitis uc with 1 deg relatives PROCEDURE: CT ABD PELV W/ORAL&IV CONTRAST CT abdomen and pelvis with contrast PQRS statement: CT scans at this facility use dose reduction including either automated exposure control, iterative reconstructions, and /or weight based radiation dosing via mA and kV modification when appropriate to reduce radiation dose to as low as reasonably achievable. Contrast: 75 mL of opaque 300 intravenous contrast HISTORY: Abdominal pain. Colitis. COMPARISON: CT abdomen November 22, 2019 Abdomen findings: At the right middle lobe there is a 15 mm solid nodule with small focus of central cavitation this was not documented on the prior exam. Extensive asymmetric groundglass opacities of the right lower lobe with lesser involvement of the left lower lobe. Mild prominence of the bile ducts typical after cholecystectomy. There is mild prominence of the pancreatic duct diameter of up to 5 mm at the head and body may be pancreatic divisum as well. Left renal 8 mm somewhat linear calculus with smaller calculi present as well. Right kidney, adrenals, spleen and liver are unremarkable. The appendix is negative. No bowel obstruction. There is mild wall thickening of the rectosigmoid colon as well as of the proximal jejunum with left upper quadrant. Aortoiliac artery calcified plaque. Stable retroperitoneal subcentimeter lymph nodes. No enlarged adenopathy. Calcified aorta and abdominal arteries. No abdominal fluid. Pelvis findings: Hysterectomy. Ovaries are absent. Bladder and bones are unremarkable. Rectosigmoid wall thickening. IMPRESSION: 1. Mild wall thickening of the jejunum at the left upper quadrant abdomen and of the rectosigmoid colon may represent mild changes of enterocolitis. No bowel obstruction evident. 2. The appendix is negative. 3. 15 mm solid nodule with small focus of central cavitation of the right middle lobe. This is indeterminate, could represent cavitating round pneumonia or invasive fungal infection, pulmonary infarct or malignant nodule. 4. Mild dilation of the pancreatic duct. There may be pancreatic divisum as well. 5. Nonobstructing left renal calculi. Electronically signed by: Soumya Salcedo MD (05/24/2021 4:07 AM) [facility] [place] DICTATED AND SIGNED BY: SOUMYA SALCEDO MD DATE: 05/24/21 0402 CC: YARIEL BRUCE MD; GENEVIEVE LÓPEZ PAC ~MTH0 0 Heart Score: C/O Chest Pain: N/A HEART Score for Chest Pain: HEART Score for Chest Pain Response (Comments) Value History Slighlty/Non-Suspicious 0 ECG Nonspecific Repolarizatio 1 Age >45 - < 65 1 Risk Factors 1 or 2 Risk Factors 1 Troponin < Normal Limit 0 Total 3 Risk Factors: Risk Factors: DM, Current or recent (<one month) smoker, HTN, HLP, family history of CAD, obesity. Risk Scores: Score 0 - 3: 2.5% MACE over next 6 weeks - Discharge Home Score 4 - 6: 20.3% MACE over next 6 weeks - Admit for Clinical Observation Score 7 - 10: 72.7% MACE over next 6 weeks - Early Invasive Strategies Course & Med Decision Making: Course & Med Decision Making Pertinent Labs and Imaging studies reviewed. (See chart for details) Recommend patient stay on a clear fluid diet only for the next 2 days. No solids. No milk products. Clear fluids only such as Jell-O, 7-Up, clear juices such as grape or apple, Gatorade, sweet tea, popsicles. Patient may use [id number] Pepto-Bismol for diarrhea episodes. Take Zofran 8 mg up to 4 times a day for nausea and vomiting. Encourage patient to follow-up with her primary care and schedule outpatient EGD and colonoscopy. With history of inflammatory bowel disorders in both of her daughters this would also place her at higher risk for same entities. Patient return if any concerns. Review ED work-up with primary care. Impression: 1. Abdomen pain 2. Acute gastroenteritis 3. CT findings of enterocolitis jejunum 4. Elevated AlkPhos 150 5. Pulmonary nodule [] Dragon Disclaimer: Dragon Disclaimer: This electronic medical record was generated, in whole or in part, using a voice recognition dictation system. Departure Departure: Referrals: GENEVIEVE LÓPEZ (PCP) [place] Disclaimer This chart was dictated in whole or in part using Voice Recognition software in a busy, high-work load, and often noisy Emergency Department environment. It may contain unintended and wholly unrecognized errors or omissions. Dragon Disclaimer This chart was dictated in whole or in part using Voice Recognition software in a busy, high-work load, and often noisy Emergency Department environment. It may contain unintended and wholly unrecognized errors or omissions. YARIEL BRUCE MD May 23, 2021 20:58
[2021-05-23 21:10] VITALS: BP 170/100
[2021-05-23] MEDS ORDERED: IV RINGERS SOLUTION,LACTATED 1,000 ML IV SCH (21:30)
[2021-05-23] MEDS ORDERED: ONDANSETRON PF 4 MG/2 ML VIAL. IVP ONE (21:30)
[2021-05-23] MEDS ORDERED: FAMOTIDINE 20 MG/2 ML VIAL IVP ONE (21:30)
[2021-05-23] MEDS ORDERED: KETOROLAC 30 MG/ML VIAL. IVP ONE (21:30)
[2021-05-23 22:22] LABS: BASO # 0.1 x10^3/uL (0.0-0.2); BASO % 1 % (0-3); EOS # 0.2 x10^3/uL (0.0-0.7); EOS % 3 % (0-3); HEMATOCRIT 42.4 % (36.0-47.0); HEMOGLOBIN 13.9 g/dL (12.0-15.5); LYMPH # 3.8 x10^3/uL (1.0-4.8); LYMPH % 48 % (24-48); MEAN CORPUSCULAR HEMOGLOBIN 28 pg (25-35); MEAN CORPUSCULAR HGB CONC 33 g/dL (31-37); MEAN CORPUSCULAR VOLUME 85 fL (79-100); MONO # 0.7 x10^3/uL (0.0-1.1); MONO % 9 % (0-9); NEUT # 3.1 x10^3uL (1.8-7.7); NEUT % 39 % (31-73); PLATELET COUNT 345 x10^3/uL (140-400); RED BLOOD COUNT 5.01 x10^6/uL (3.50-5.40); RED CELL DISTRIBUTION WIDTH 14.2 % (11.5-14.5); WHITE BLOOD COUNT 7.9 x10^3/uL (4.0-11.0)
[2021-05-23 22:26] LABS: BILIRUBIN,URINE NEG (NEG); CLARITY,URINE CLEAR; COLOR,URINE YELLOW; GLUCOSE,URINE NEG (NEG); NITRITE,URINE NEG (NEG); UROBILINOGEN,URINE 0.2 mg/dL (0.2 mg/dL)
[2021-05-23 22:28] LABS: BACTERIA,URINE 0 /HPF (0-FEW); RBC,URINE 0 /HPF (0-2); WBC,URINE 0 /HPF (0-4)
[2021-05-23 22:29] LABS: CALCIUM 8.7 mg/dL (8.5-10.1); CREATININE 0.9 mg/dL (0.6-1.0); GFR 64.5; POTASSIUM 3.9 mmol/L (3.5-5.1)
[2021-05-23 22:31] LABS: BARBITURATES NEG (NEG); BENZODIAZEPINES NEG (NEG); CANNABINOIDS NEG (NEG); COCAINE NEG (NEG); METHADONE NEG (NEG); OPIATES NEG (NEG); PHENCYCLIDINE NEG (NEG)
[2021-05-23 22:32] LABS: AMPHETAMINE/METHAMPHETAMINE NEG (NEG)
[2021-05-23 22:35] LABS: ALBUMIN 3.5 g/dL (3.4-5.0); DIRECT BILIRUBIN 0.1 mg/dL (0.0-0.2); TOTAL BILIRUBIN 0.4 mg/dL (0.2-1.0); TOTAL PROTEIN 6.6 g/dL (6.4-8.2)
[2021-05-23 23:06] LABS: INFLUENZA A PATIENT NEGATIVE (NEGATIVE); INFLUENZA B PATIENT NEGATIVE (NEGATIVE)
--- NOTE | 2021-05-23 23:33 | EKG ---
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
[2021-05-24] MEDS ORDERED: PROCHLORPERAZINE 10 MG/2 ML VIAL. IV ONE (00:45)
[2021-05-24] MEDS ORDERED: MORPHINE SULFATE 10 MG/ML SYRINGE. SQ ONE (00:45)
[2021-05-24] MEDS ORDERED: diphenhydrAMINE 50 MG/ML VIAL IVP ONE (00:45)
[2021-05-24] MEDS ORDERED: IOHEXOL 240 MG/ML 50ML VIAL. PO ONE (00:45)
[2021-05-24] MEDS ORDERED: IOHEXOL 300 MG/ML 75 ML VIAL. IV ONE (00:45)
[2021-05-24] MEDS ORDERED: CONTRAST GIVEN. MC PRN (01:00)
--- NOTE | 2021-05-24 04:10 | RAD ---
CT abdomen and pelvis with contrast PQRS statement: CT scans at this facility use dose reduction including either automated exposure cont rol, iterative reconstructions, and /or weight based radiation dosing via mA and kV modification when appropriate to reduce radiation dose to as low as reasonably achievable. Contrast: 75 mL of opaque 300 intravenous contrast HISTORY: Abdominal pain. Colitis. COMPARISON: CT abdomen November 22, 2019 Abdomen findings: At the right middle lobe there is a 15 mm solid nodule with small focus of central cavitation this was not documented on the prior exam. Extensive asymmetric groundglass opacities of t he right lower lobe with lesser involvement of the left lower lobe. Mild prominence of the bile ducts typical after cholecystectomy. There is mild prominence of the pancreatic duct diameter of up to 5 m m at the head and body may be pancreatic divisum as well. Left renal 8 mm somewhat linear calculus wi th smaller calculi present as well. Right kidney, adrenals, spleen and liver are unremarkable. The ap pendix is negative. No bowel obstruction. There is mild wall thickening of the rectosigmoid colon as well as of the proximal jejunum with left upper quadrant. Aortoiliac artery calcified plaque. Stable retroperitoneal subcentimeter lymph nodes. No enlarged adenopathy. Calcified aorta and abdominal zandra billy. No abdominal fluid. Pelvis findings: Hysterectomy. Ovaries are absent. Bladder and bones are unremarkable. Rectosigmoid w all thickening. IMPRESSION: 1. Mild wall thickening of the jejunum at the left upper quadrant abdomen and of the rectosigmoid col on may represent mild changes of enterocolitis. No bowel obstruction evident. 2. The appendix is negative. 3. 15 mm solid nodule with small focus of central cavitation of the right middle lobe. This is indete rminate, could represent cavitating round pneumonia or invasive fungal infection, pulmonary infarct o r malignant nodule. 4. Mild dilation of the pancreatic duct. There may be pancreatic divisum as well. 5. Nonobstructing left renal calculi. Electronically signed by: Pipo Salcedo MD (05/24/2021 4:07 AM) [facility]
--- NOTE | 2021-05-24 07:28 | RAD ---
PA chest and AP upright and supine abdomen x-ray HISTORY: Abdominal pain, nausea, vomiting. FINDINGS: Heart size normal. Mediastinal silhouette is normal. Mild apical paraseptal emphysema. At t he right lateral lung base there is a oblong 18 mm soft tissue density nodule not apparent on prior i maging. No pleural effusions. No pneumoperitoneum. Cholecystectomy surgical clips. Left renal calculi largest of which measures 4 mm. Left pelvic phleboliths. No dilated bowel loops or abnormal air-flui d levels in the bowel to suggest ileus or obstruction. IMPRESSION: 1. No evidence of bowel obstruction. 2. Left renal calculi. 3. 18 mm solid nodule at the right lateral lung base is new from prior x-rays. Further assessment wit h CT chest imaging is recommended. Electronically signed by: Pipo Salcedo MD (05/24/2021 7:26 AM) [facility]
== END 2021-05-24 04:55 | disposition home or self-care (01) ==
LOC: ER 20:47
DX: K52.9 Noninfective gastroenteritis and colitis, unspecified (principal); K52.89 Other specified noninfective gastroenteritis and colitis; R91.1 Solitary pulmonary nodule; R79.89 Other specified abnormal findings of blood chemistry; K21.9 Gastro-esophageal reflux disease without esophagitis; E78.00 Pure hypercholesterolemia, unspecified; I10 Essential (primary) hypertension; Z20.822 Contact with and (suspected) exposure to COVID-19; Z90.49 Acquired absence of other specified parts of digestive tract; Z90.710 Acquired absence of both cervix and uterus; Z88.5 Allergy status to narcotic agent
CPT/HCPCS: 74022; 74177; 80048; 80076; 80307; 81001; 82150; 82550; 83690; 84484; 85025; 85610; 85730; 87426; 87804; 93005; 96361; 96372; 96374; 96375; 99285; C9803; J0780; J1200; J1885; J2270; J2405; J3490; J7120; Q9966; Q9967; U0003